=== PATIENT | male | born 1985 | race African-American/Black ===

== ENCOUNTER 2020-12-16 17:48 | Emergency (ER) | payer OTHER, SELFPAY ==
[2020-12-16 18:38] VITALS: BP 147/78; PULSE 79; RESP 18; TEMP 36.7; O2SAT 96; BMI 32.1
[2020-12-16] MEDS: Acetaminophen 325 MG TABLET 650 MG PO (19:14)
--- NOTE | 2020-12-16 19:15 | PC.NURSE ---
patient c/o headache, medicated with tylenol
[2020-12-16 19:37] LABS: Glucose Urine UA NEG (NEG); Hematocrit 42.2 % (42-52); Hemoglobin 14.3 g/dl (14.0-18.0); Leukocyte Esterase Urine NEG (NEG); Mean Corpuscular HGB Conc 33.9 g/dl (31.0-36.0); Mean Corpuscular Hemoglobin 28.8 pg (27.0-33.0); Mean Corpuscular Volume 85.1 fL (80-98); Mean Platelet Volume 9.2 fL (9.4-12.4); Nitrite Urine NEG (NEG); Platelet Count 280 X10*3/uL (160-400); Red Blood Count 4.96 X10*6/uL (4.60-5.80); Red Cell Distribution Width 13.2 % (11.0-16.0); Urine Blood NEG (NEG); Urine Ketones NEG (NEG); Urine Protein NEG (NEG-TRACE); White Blood Count 6.8 X10*3/uL (4.8-10.8)
[2020-12-16 19:40] LABS: Appearance Urine CLEAR; Color Urine YELLOW
--- NOTE | 2020-12-16 19:59 | ED_ITS ---
HPI - Medical Clearance General Chief complaint: Medical Clearance Stated complaint: Medical Clearance Source: patient Mode of arrival: ambulatory Limitations: no limitations History of Present Illness HPI Narrative: 35-year-old male presents to the emergency department for medical clearance. Was just released from assisted today and require CBC, Chem 7, and tox screen. Patient does not have any complaints. MD complaint: medical clearance requested Traumatic Symptoms: denies traumatic injury Associated Symptoms: denies other symptoms Treatments Prior to Arrival: none Review of Systems Review of Systems: Constitutional: No Fever, No Chills ENT/Mouth: No sore throat, No Rhinorrhea Eyes: No Eye Pain, No Swelling, No Redness Cardiovascular: No Chest Pain, No SOB Respiratory: No Cough, No Sputum Gastrointestinal: No Nausea, No Vomiting, No Diarrhea, No abdominal Pain Genitourinary: No Dysuria, No Hematuria Musculoskeletal: No joint pain, No Myalgias, No Joint Swelling Skin: No Skin Lesions, No rash Neuro: No Weakness, No Numbness, No Loss of Consciousness, No Dizziness, No Headache Psych: No Anxiety, No Depression, No SI/HI/AH/VH Heme/Lymph: No Bruising, No Bleeding,No Lymphadenopathy Endocrine: No Polyuria, No Polydipsia Yes all other systems are reviewed and are negative [facility] Past Medical History Attestation statement: The following information was validated with the patient. Medical History Substance abuse Social History Social History Advance Directives: No Advance Directives Information Provided: Yes Physical Exam Vital Signs: Vital Signs: Last Vital Signs Temp 98.0 F 12/16/20 18:38 Pulse 79 12/16/20 18:38 Resp 18 12/16/20 18:38 BP 147/78 H 12/16/20 18:38 Pulse Ox 96 12/16/20 18:38 Body Mass Index 32.1 Appearance: Alert. Oriented X3. No acute distress. Eyes: Pupils equal, round and reactive to light. ENT: Pharynx normal. Neck: Normal inspection. Neck supple. CVS: Normal heart rate and rhythm. Pulses normal. Respiratory: No respiratory distress. Breath sounds normal. Abdomen: Soft and nontender. Skin: Skin warm and dry. Normal skin color. Normal skin turgor. Extremities: No lower extremity edema. Neuro: No motor deficit. No sensory deficit. Course Course Course Narrative: 35-year-old male with no significant past medical history presents for medical clearance. CBC, Chem 7, and urinalysis are negative for acute findings requiring emergent intervention. Plan of care is to discharge home. Patient verbalized understanding of and agrees to plan. MDM - Medical Clearance MDM Narrative Medical decision making narrative: Medical clearance Medical Records Attestation: I reviewed the patient's medical records. Lab Data Attestation: I reviewed the patient's lab results. Result diagrams: 12/16/20 19:16 12/16/20 19:16 Labs: Lab Results 12/16/20 12/16/20 12/16/20 Range/Units 19:16 19:16 19:16 WBC 6.8 (4.8-10.8) X10*3/uL RBC 4.96 (4.60-5.80) X10*6/uL Hgb 14.3 (14.0-18.0) g/dl Hct 42.2 (42-52) % MCV 85.1 (80-98) fL MCH 28.8 (27.0-33.0) pg MCHC 33.9 (31.0-36.0) g/dl RDW 13.2 (11.0-16.0) % Plt Count 280 (160-400) X10*3/uL MPV 9.2 L (9.4-12.4) fL Absolute Nucleated RBC 0.000 (0.0-0.012) X10*3/uL Nucleated RBC % (auto) 0.0 (0.0-0.2) /100WBC Sodium 140 (135-145) mmol/L Potassium 4.4 (3.3-5.1) mmol/L Chloride 103 (96-108) mmol/L Carbon Dioxide 27 (22-29) mmol/L Anion Gap 14 (12-20) BUN 7 L (9-16) mg/dL Creatinine 1.04 (0.5-1.4) mg/dL Estim Creat Clear Calc 130.2 Estimated GFR > 60 Random Glucose 106 (60-115) mg/dL Calcium 10.4 H (8.4-10.2) mg/dL Total Bilirubin 0.6 (0.0-1.0) mg/dL AST 30 (5-37) U/L ALT 41 H (0-40) U/L Alkaline Phosphatase 70 (39-117) U/L Total Protein 8.2 H (6.5-8.0) g/dL Albumin 4.7 (3.5-5.0) g/dL Urine Color YELLOW Urine Appearance CLEAR Urine pH 7.0 (5.0-8.0) Ur Specific [place] 1.010 (1.005-1.025) Urine Protein NEG (NEG-TRACE) MG/DL Urine Glucose (UA) NEG (NEG) MG/DL Urine Ketones NEG (NEG) MG/DL Urine Blood NEG (NEG) Urine Nitrite NEG (NEG) Ur Leukocyte Esterase NEG (NEG) Urine Opiates Screen (Not Detect) Ur Barbiturates Screen (Not Detect) Ur Phencyclidine Scrn (Not Detect) Ur Amphetamines Screen (Not Detect) U Benzodiazepines Scrn (Not Detect) Urine Cocaine Screen (Not Detect) U Marijuana (THC) Screen (Not Detect) 12/16/20 Range/Units 19:16 WBC (4.8-10.8) X10*3/uL RBC (4.60-5.80) X10*6/uL Hgb (14.0-18.0) g/dl Hct (42-52) % MCV (80-98) fL MCH (27.0-33.0) pg MCHC (31.0-36.0) g/dl RDW (11.0-16.0) % Plt Count (160-400) X10*3/uL MPV (9.4-12.4) fL Absolute Nucleated RBC (0.0-0.012) X10*3/uL Nucleated RBC % (auto) (0.0-0.2) /100WBC Sodium (135-145) mmol/L Potassium (3.3-5.1) mmol/L Chloride (96-108) mmol/L Carbon Dioxide (22-29) mmol/L Anion Gap (12-20) BUN (9-16) mg/dL Creatinine (0.5-1.4) mg/dL Estim Creat Clear Calc Estimated GFR Random Glucose (60-115) mg/dL Calcium (8.4-10.2) mg/dL Total Bilirubin (0.0-1.0) mg/dL AST (5-37) U/L ALT (0-40) U/L Alkaline Phosphatase (39-117) U/L Total Protein (6.5-8.0) g/dL Albumin (3.5-5.0) g/dL Urine Color Urine Appearance Urine pH (5.0-8.0) Ur Specific [place] (1.005-1.025) Urine Protein (NEG-TRACE) MG/DL Urine Glucose (UA) (NEG) MG/DL Urine Ketones (NEG) MG/DL Urine Blood (NEG) Urine Nitrite (NEG) Ur Leukocyte Esterase (NEG) Urine Opiates Screen Not Detected (Not Detect) Ur Barbiturates Screen Not Detected (Not Detect) Ur Phencyclidine Scrn Not Detected (Not Detect) Ur Amphetamines Screen Not Detected (Not Detect) U Benzodiazepines Scrn Not Detected (Not Detect) Urine Cocaine Screen Not Detected (Not Detect) U Marijuana (THC) Screen Not Detected (Not Detect) Discharge Plan Discharge Clinical Impression: Encounter for medical clearance for patient hold Patient Disposition: Home, Self-Care Instructions: Normal Exam (ED) Additional Instructions: You presented to the emergency department for medical clearance. Your lab values are normal. Urine toxicology screen are negative. Thank you for choosing this emergency department for evaluation. Please follow-up with primary care physician as needed. Return to the emergency department for any new, concerning, or worsening symptoms. Interventions: ED Discharge Assessment Last Done: 12/16/20 20:19 Discharge Date/Time: 12/16/20 20:22
[2020-12-16 20:02] LABS: Amphetamine Screen Urine Not Detected (Not Detect); Barbiturates, Urine Not Detected (Not Detect); Benzodiazepines Screen Urine Not Detected (Not Detect); Cannabinoid Screen Urine Not Detected (Not Detect); Cocaine Screen Urine Not Detected (Not Detect); Opiate Screen Urine Not Detected (Not Detect); Phencyclidine Screen Urine Not Detected (Not Detect)
[2020-12-16 20:03] LABS: Alanine Aminotransferase 41 U/L (0-40); Albumin Level 4.7 g/dL (3.5-5.0); Alkaline Phosphatase 70 U/L (39-117); Anion Gap 14 (12-20); Aspartate Amino Transferase 30 U/L (5-37); Bilirubin Total 0.6 mg/dL (0.0-1.0); Blood Urea Nitrogen 7 mg/dL (9-16); Calcium 10.4 mg/dL (8.4-10.2); Carbon Dioxide 27 mmol/L (22-29); Chloride 103 mmol/L (96-108); Creatinine Clr Calc Pharmacy 130.2; Estimated Glomerular Filt Rate > 60; Glucose Random 106 mg/dL (60-115); Potassium 4.4 mmol/L (3.3-5.1); Sodium 140 mmol/L (135-145); Total Protein 8.2 g/dL (6.5-8.0)
== END 2020-12-16 20:22 | disposition home or self-care (01) ==
PROVIDERS: Emergency Provider Internal Medicine
DX: Z02.79 Encounter for issue of other medical certificate (principal)
CPT/HCPCS: 36415; 80053; 80307; 81003; 85027; 99283